=== PATIENT | male | born 1935 | race Caucasian/White ===

== ENCOUNTER 2016-11-03 08:12 | Day surgery (SDC) | payer BC ==
[~2016-11-03 08:12] MED LIST: ACETAMINOPHEN 1000MG/100 ML PREMIX IV ONE; CEFAZOLIN 1 Gram 50 ML IVPB ONE
[2016-11-03 08:16] LABS: BASO % 0.7 % (0-6); EOS % 2.2 % (0-6); GRAN % 46.5 % (47-80); HEMATOCRIT 46.8 % (42.0-52.0); HEMOGLOBIN 15.4 gm/dl (14.0-18.0); LYMPH % 40.9 % (16-45); MEAN CORPUSCULAR HEMOGLOBIN 29.6 pg (27-33); MEAN CORPUSCULAR HGB CONC 32.9 g/dl (32-36); MEAN PLATELET VOLUME 9.1 fl (7.4-10.4); MONO % 9.7 % (0-9); PLATELET COUNT 258 K/uL (130-400); RED CELL DISTRIBUTION WIDTH 13.8 % (11.5-14.5); WHITE BLOOD COUNT W/O DIFF 6.8 K/uL (4.2-12.2)
[2016-11-03] MEDS ORDERED: KETOROLAC 30 MG/ML VIAL IVP ONE (14:00)
[2016-11-03] MEDS ORDERED: PROPOFOL 10 MG/ML VIAL IV ONE (14:00)
[2016-11-03] MEDS ORDERED: BUPIVACAINE 0.25% W/EPI MPF 30ML VIAL IVP ONE (14:00)
[2016-11-03] MEDS ORDERED: EPHEDRINE SULFATE 50 MG/ML ML IV ONE (14:00)
[2016-11-03] MEDS ORDERED: DESFLURANE 240 ML BTL INH ONE (14:00)
[2016-11-03] MEDS ORDERED: HYDROCODONE/APAP 5/325MG TABLET PO ONE (14:00)
[2016-11-03] MEDS ORDERED: LIDOCAINE 2% MDV (20MG/ML) 20ML VIAL IV ONE (14:00)
--- NOTE | 2016-11-04 12:41 | Operative Note ---
DATE OF SURGERY: 11/03/2016 Surgeon: Jeffery Reyes DO Referring Physician: Sandip Treadwell DO PREOPERATIVE DIAGNOSIS: Reducible right inguinal hernia. POSTOPERATIVE DIAGNOSIS: Reducible right inguinal hernia. OPERATION: OPEN RIGHT INGUINAL HERNIORRHAPHY WITH MESH. Indication: The patient is an 81-year-old male who had pain and bulging in his right inguinal region. He clearly had a reducible hernia. We did discuss repair, risks, benefits, alternatives. Risks include bleeding, infection, acute or chronic pain recurrence, and he understood this fully. PROCEDURE: Therefore, consent was signed, questions were answered. He was taken to the operating room and placed in the supine position. General anesthesia was administered per Department of Anesthesia. The patient's groin was prepped and draped in usual fashion. A timeout was performed. He did receive a pre-operative antibiotic. At this time, the oblique region was anesthetized with a total of 4 mL of 0.25% Sensorcaine with epinephrine. A 4 cm oblique incision was made. This was carried down through the subcutaneous tissue to the aponeurosis of the external oblique. This was cleaned off. A knick was made with the scalpel blade and enlarged through the superficial inguinal ring with Metzenbaum scissors. Care was taken not to injure the underlying ileal nerve or spermatic cord. At this time, superior and inferior flaps were developed and a [place] was placed on the spermatic cord. This was dissected free from the underlying transversalis fascia and retracted laterally with a Mayra drain. The floor was inspected, noted to be free of any direct herniation. The patient had a very wide-mouth fatty containing indirect hernia. This was reduced and a large plug was placed in this area. This was then sutured in with 2-0 Vicryl. The deep inguinal ring where the hernia protruded through was closed with 0 Vicryl. A right-sided ProGrip mesh was obtained. This was placed in the floor of the inguinal canal with excellent overlap of the pubic tubercle. Stitches were placed near the shelving portion of the internal oblique aponeurosis and pubic tubercle. We had excellent overlap of the hernia. At this time, the aponeurosis of the external oblique was closed over the cord with 2-0 Vicryl. Humberto layer is closed with a 3-0 Vicryl and skin was closed with a 4-0 Vicryl. He was taken to the recovery room in satisfactory condition. FINDINGS AT TIME OF SURGERY: Right inguinal hernia, indirect, repaired as above. CC: Sheron TOMLINSON
== END 2016-11-03 11:32 | disposition home or self-care (01) ==
LOC: SUR 08:12
PROVIDERS: ATTEND Surgery
DX: K40.90 Unilateral inguinal hernia, without obstruction or gangrene, not specified as recurrent (principal); E03.9 Hypothyroidism, unspecified; E78.00 Pure hypercholesterolemia, unspecified
CPT/HCPCS: 49505; 00830; 85025; J1885; J0690

== ENCOUNTER 2018-11-22 07:23 | Day surgery (SDC) | payer BC ==
[~2018-11-22 07:23] MED LIST changes: +ACETAMINOPHEN 1,000 MG/100 ML BTL IVPB ONE; -ACETAMINOPHEN 1000MG/100 ML PREMIX IV ONE; -CEFAZOLIN 1 Gram 50 ML IVPB ONE; +CEFAZOLIN 1G VIAL IVP ONE; +WATER STERILE FOR INJECTION 20 ML VIAL MC ONE
[2018-11-22] MEDS ORDERED: PROPOFOL 10 MG/ML VIAL IV ONE (07:24)
[2018-11-22] MEDS ORDERED: LIDOCAINE 2% MDV (20MG/ML) 20ML VIAL IV ONE (07:24)
[2018-11-22] MEDS ORDERED: KETAMINE HCL 100MG/1ML VIAL INJ ONE (07:24)
[2018-11-22] MEDS ORDERED: SEVOFLURANE 250 ML INH ONE (07:24)
[2018-11-22] MEDS ORDERED: PHENYLEPHRINE HCL 10 MG/ML VIAL IVP ONE (07:24)
[2018-11-22] MEDS ORDERED: ONDANSETRON HCL IV 4 MG/2 ML VIAL IVP ONE (07:24)
[2018-11-22] MEDS ORDERED: RINGERS SOLUTION,LACTATED 1,000 ML IV ONE (09:49)
[2018-11-22] MEDS ORDERED: KETOROLAC 30 MG/ML VIAL IVP ONE (10:05)
[2018-11-22] MEDS ORDERED: HYDROCODONE/APAP 5/325MG TABLET PO ONE (10:26)
--- NOTE | 2018-11-23 08:30 | Operative Note ---
DATE OF SURGERY: 11/22/2018 SURGEON: Jeffery Reyes DO PREOPERATIVE DIAGNOSIS: Incarcerated umbilical hernia. POSTOPERATIVE DIAGNOSIS: Incarcerated umbilical hernia. OPERATION: Open umbilical herniorrhaphy with mesh. INDICATIONS: The patient is an 83-year-old male who is having ongoing periumbilical discomfort. He did have a [id number] size incarcerated umbilical hernia. We did discuss repair. Risks, benefits, and alternatives were discussed. Risks include bleeding, infection, recurrence. He understood this fully. Thereafter consent was signed and questions answered. PROCEDURE: He was taken to the operating room and placed in a supine position. General anesthesia was administered per the department of anesthesia. The patient's abdomen was shaved of hair and prepped and draped in the usual fashion. Adequate timeout was performed. He did receive preoperative antibiotic as well as DVT prophylaxis. At this time, the periumbilical region was anesthetized with a total of 10 mL of 0.25% Sensorcaine with epinephrine. A 4 cm curvilinear supraumbilical incision was made. This was carried down to the anterior rectus fascia. The hernia was encircled. The overlying skin was dissected free. The neck of the hernia sac was then scored and amputated and passed off the field. This did contain incarcerated omentum. This was reduced in intraperitoneal position. Hemostasis was noted. At this time, the fascial edges were approximated with 0 Vicryl. These were not tied down. An [address] mesh was obtained. This was placed in an intraperitoneal position. The fascia was then approximated. The upper skirt was sutured to the anterior rectus fascia with 2-0 Vicryl. The tails overlapped the fascia and were sutured in place as well. This gave a good repair. The skin was then tacked down to the fascia with 3-0. The skin was closed with 3-0 and 4-0 Vicryl. The patient tolerated procedure well. CC: Sheron TOMLINSON
== END 2018-11-22 10:55 | disposition home or self-care (01) ==
LOC: SUR 07:23
PROVIDERS: ATTEND Surgery
DX: K42.0 Umbilical hernia with obstruction, without gangrene (principal); I10 Essential (primary) hypertension; E78.00 Pure hypercholesterolemia, unspecified; K21.9 Gastro-esophageal reflux disease without esophagitis
CPT/HCPCS: 49587; 00750; J1885; J2405; J3490; J0690; J2370; J7120